=== PATIENT | female | born 1990 | race Caucasian/White ===

== ENCOUNTER 2021-01-31 07:18 | Outpatient (CLI) | payer BC ==
[2021-01-31 11:29] LABS: BASOPHILS # (AUTO) 0.1 10^3/uL (0.0-0.1); BASOPHILS % (AUTO) 0.8 %; EOSINOPHILS # (AUTO) 0.3 10^3/uL (0.0-0.7); EOSINOPHILS % (AUTO) 4.8 %; HCT - HEMATOCRIT 39.5 % (37.0-47.0); HGB - HEMOGLOBIN 13.2 g/dL (12.0-16.0); LYMPHOCYTES # (AUTO) 2.4 10^3/uL (1.5-3.5); LYMPHOCYTES % (AUTO) 38.7 %; MEAN CORPUSCULAR HEMOGLOBIN 30.1 pg (27.0-31.0); MEAN CORPUSCULAR HGB CONC 33.4 g/dL (32.0-36.0); MEAN CORPUSCULAR VOLUME 90.2 fL (81.0-99.0); MEAN PLATELET VOLUME 12.1 fL (7.9-10.8); MONOCYTES # (AUTO) 0.4 10^3/uL (0.0-1.0); MONOCYTES % (AUTO) 6.5 %; PLT - PLATELET COUNT 223 10^3/uL (130-450); RED BLOOD COUNT 4.38 10^6/uL (4.20-5.40); RED CELL DISTRIBUTION WIDTH 12.7 % (12.0-15.0); WHITE BLOOD COUNT 6.2 x10^3/uL (4.8-10.8)
[2021-01-31 11:37] LABS: ALBUMIN 4.4 g/dL (3.2-5.5); ALBUMIN/GLOBULIN RATIO 1.3 (1.0-2.2); ALKALINE PHOSPHATASE 46 IU/L (42-121); ALT ALANINE AMINOTRANSFERASE 18 IU/L (10-60); AST ASPARTATE AMINOTRANSFERASE 19 IU/L (10-42); BILIRUBIN,TOTAL 0.8 mg/dL (0.2-1.0); BUN - BLOOD UREA NITROGEN 15 mg/dL (6-20); CALCIUM 9.4 mg/dL (8.5-10.3); CARBON DIOXIDE - CO2 25 mmol/L (21-32); CHLORIDE 107 mmol/L (101-111); CHOLESTEROL 177 mg/dL; CREATININE 0.7 mg/dL (0.4-1.0); GFR - MDRD 99 (>89); GLUCOSE 87 mg/dL (70-100); HDL CHOLESTEROL 59 mg/dL; LDL CHOLESTEROL,CALCULATED 104 mg/dL; LDL/HDL RATIO 1.8 (<4.4); POTASSIUM 3.9 mmol/L (3.5-5.0); SODIUM 139 mmol/L (135-145); TOTAL PROTEIN 7.8 g/dL (6.7-8.2); TRIGLYCERIDES 71 mg/dL; VLDL CHOLESTEROL 14 mg/dL
[2021-01-31 11:49] LABS: THYROID STIMULATING HORMONE 0.89 uIU/mL (0.34-5.60)
== END 2021-01-31 07:19 | disposition home or self-care (01) ==
LOC: LAB.N 07:18
PROVIDERS: ATTEND Physician Assistant
DX: F33.9 Major depressive disorder, recurrent, unspecified (principal); F41.1 Generalized anxiety disorder; Z79.899 Other long term (current) drug therapy; Z83.3 Family history of diabetes mellitus
CPT/HCPCS: 36415; 80053; 80061; 83721; 84443; 85025

== ENCOUNTER 2022-01-17 08:00 | Outpatient (CLI) | payer BC ==
[2022-01-17 16:30] LABS: BILIRUBIN,URINE NEGATIVE (NEGATIVE); GLUCOSE, URINE (UA) NEGATIVE (NEGATIVE); KETONES,URINE (UA) NEGATIVE (NEGATIVE); LEUKOCYTE ESTERASE, URINE NEGATIVE (NEGATIVE); NITRITE,URINE NEGATIVE (NEGATIVE); OCCULT BLOOD,URINE NEGATIVE (NEGATIVE); PH,URINE 7.5 PH (5.0-7.5); PROTEIN,URINE NEGATIVE (NEGATIVE); UROBILINOGEN,URINE 1 (NORMAL) E.U./dL (NORMAL)
[2022-01-17 16:32] LABS: CLARITY,URINE CLEAR (CLEAR)
[2022-01-17 16:47] LABS: BACTERIA,URINE Few /HPF (None Seen); RBC,URINE 0-5 /HPF (0-5); SQUAMOUS EPITHELIAL CELL,UR MOD Squamous (<= Few); WBC,URINE 0-3 /HPF (0-5)
== END 2022-01-17 23:59 | disposition home or self-care (01) ==
LOC: LAB.WC 08:00
PROVIDERS: ATTEND Obstetrics & Gynecology
DX: Z32.01 Encounter for pregnancy test, result positive (principal)
CPT/HCPCS: 81001; 87086

== ENCOUNTER 2022-01-20 10:13 | Outpatient (CLI) | payer BC ==
[2022-01-20 10:34] LABS: BASOPHILS # (AUTO) 0.1 10^3/uL (0.0-0.1); BASOPHILS % (AUTO) 0.7 %; EOSINOPHILS # (AUTO) 0.2 10^3/uL (0.0-0.7); EOSINOPHILS % (AUTO) 3.2 %; HCT - HEMATOCRIT 36.5 % (37.0-47.0); HGB - HEMOGLOBIN 12.2 g/dL (12.0-16.0); MEAN CORPUSCULAR HEMOGLOBIN 29.8 pg (27.0-31.0); MEAN CORPUSCULAR HGB CONC 33.4 g/dL (32.0-36.0); MEAN PLATELET VOLUME 11.2 fL (7.9-10.8); MONOCYTES # (AUTO) 0.5 10^3/uL (0.0-1.0); MONOCYTES % (AUTO) 6.2 %; NEUTROPHILS # (AUTO) 4.6 10^3/uL (1.5-6.6); NEUTROPHILS % (AUTO) 62.6 %; PLT - PLATELET COUNT 225 10^3/uL (130-450); RED CELL DISTRIBUTION WIDTH 12.4 % (12.0-15.0); WHITE BLOOD COUNT 7.4 x10^3/uL (4.8-10.8)
[2022-01-21 04:08] LABS: HBsAG SCREEN Negative (Negative); HCV AB 0.1 s/co ratio (0.0-0.9)
[2022-01-21 06:09] LABS: HIV SCREEN 4TH GENERATION Non Reactive (Non Reactive)
[2022-01-21 07:11] LABS: RPR Non Reactive (Non Reactive); VARICELLA-ZOSTER AB IGG 1381 index (Immune >165)
== END 2022-01-20 10:14 | disposition home or self-care (01) ==
LOC: LAB 10:13
PROVIDERS: ATTEND Obstetrics & Gynecology
DX: Z36.89 Encounter for other specified antenatal screening (principal)
CPT/HCPCS: 36415; 85025; 86592; 86762; 86787; 86803; 86850; 86900; 86901; 87340; 87389

== ENCOUNTER 2022-01-28 17:03 | Outpatient (CLI) | payer BC ==
--- NOTE | 2022-01-29 13:00 | Ultrasound Report ---
PROCEDURE: OB First Trimester w/TV INDICATIONS: POSITIVE TEST OUTSIDE/PRIOR DATING DATA: Last menstrual period (LMP): 11/29/2021. LMP-based estimated date of delivery (NEWTON): 09/05/2022. First dating scan (date and location): 01/28/2022. Estimated date of delivery (NEWTON) from first dating scan: 09/08/2022. TECHNIQUE: Real-time scanning was performed of the fetus and maternal pelvic organs, with image documentation. Endovaginal scanning was also performed to better visualize the fetus and maternal ovaries. COMPARISON: None FINDINGS: Embryo: Foreman-rump length measures 1.7 cm, corresponding to 8 weeks 1 day. All recommendations are p resent measuring 11 x 11 mm. Heart rate: 176 beats per minute. Measurement variability in dating: +/- 4 weeks by LMP, +/- 7 days by mean sac diameter (use before 6 weeks gestation if crown-rump length not able to be measured), +/- 5 days by crown-rump length (6-12 weeks gestation). Maternal organs: Ovaries demonstrate a right corpus luteal cyst. IMPRESSION: Single live intrauterine present with ultrasound gestational age of 8 weeks 1 day. Recommend follow-up imaging at 20-20 weeks 4 days. Reviewed by: Arianne Metz MD on 01/29/2022 12:59 PM PDT Approved by: Arianne Metz MD on 01/29/2022 12:59 PM PDT Station ID: [id number]
== END 2022-01-28 17:04 | disposition home or self-care (01) ==
LOC: DI 17:03
PROVIDERS: ATTEND Obstetrics & Gynecology
DX: Z32.01 Encounter for pregnancy test, result positive (principal)

== ENCOUNTER 2022-02-07 12:12 | Outpatient (CLI) | payer BC ==
[2022-02-07 13:06] LABS: BILIRUBIN,URINE NEGATIVE (NEGATIVE); GLUCOSE, URINE (UA) NEGATIVE (NEGATIVE); KETONES,URINE (UA) TRACE mg/dL (NEGATIVE); LEUKOCYTE ESTERASE, URINE SMALL (NEGATIVE); NITRITE,URINE NEGATIVE (NEGATIVE); OCCULT BLOOD,URINE NEGATIVE (NEGATIVE); PH,URINE 5.5 PH (5.0-7.5); PROTEIN,URINE NEGATIVE (NEGATIVE); UROBILINOGEN,URINE 0.2 (NORMAL) E.U./dL (NORMAL)
[2022-02-07 13:10] LABS: CLARITY,URINE CLOUDY (CLEAR)
[2022-02-07 13:50] LABS: RBC,URINE 0-5 /HPF (0-5); SQUAMOUS EPITHELIAL CELL,UR MOD Squamous (<= Few)
[2022-02-07 13:51] LABS: AMORPHOUS SEDIMENT,UR Marked /LPF; BACTERIA,URINE None Seen /HPF (None Seen); CRYSTALS,URINE 3-5 Calcium Oxalate /LPF
== END 2022-02-07 12:13 | disposition home or self-care (01) ==
LOC: LAB.WC 12:12
PROVIDERS: ATTEND Obstetrics & Gynecology
DX: Z36.89 Encounter for other specified antenatal screening (principal)
CPT/HCPCS: 81001; 87086

== ENCOUNTER 2022-03-04 08:00 | Outpatient (CLI) | payer BC ==
[2022-03-04 09:52] LABS: BILIRUBIN,URINE NEGATIVE (NEGATIVE); GLUCOSE, URINE (UA) NEGATIVE (NEGATIVE); KETONES,URINE (UA) NEGATIVE (NEGATIVE); LEUKOCYTE ESTERASE, URINE NEGATIVE (NEGATIVE); NITRITE,URINE NEGATIVE (NEGATIVE); OCCULT BLOOD,URINE NEGATIVE (NEGATIVE); PROTEIN,URINE NEGATIVE (NEGATIVE); UROBILINOGEN,URINE 0.2 (NORMAL) E.U./dL (NORMAL)
[2022-03-04 09:54] LABS: CLARITY,URINE CLOUDY (CLEAR)
[2022-03-04 10:06] LABS: AMORPHOUS SEDIMENT,UR Marked /LPF; BACTERIA,URINE Few /HPF (None Seen); CRYSTALS,URINE 3-5 Calcium Oxalate /LPF; RBC,URINE 0-5 /HPF (0-5); SQUAMOUS EPITHELIAL CELL,UR FEW Squamous (<= Few); WBC,URINE 0-3 /HPF (0-5)
== END 2022-03-04 23:59 | disposition home or self-care (01) ==
LOC: LAB.WC 08:00
PROVIDERS: ATTEND Obstetrics & Gynecology
DX: Z34.00 Encounter for supervision of normal first pregnancy, unspecified trimester (principal); Z36.89 Encounter for other specified antenatal screening
CPT/HCPCS: 81001; 87086

== ENCOUNTER 2022-04-18 18:43 | Outpatient (CLI) | payer BC ==
--- NOTE | 2022-04-19 03:04 | Ultrasound Report ---
PROCEDURE: OB Detailed Eval INDICATIONS: SUPERVISION OF OUTSIDE/PRIOR DATING DATA: Last menstrual period (LMP): 11/29/2021. LMP-based estimated date of delivery (NEWTON): 09/05/2022. First dating scan (date and location): . 01/28/2022 Estimated date of delivery (NEWTON) from first dating scan: 08/12/2022. The below data below was generated using the ultrasound NEWTON TECHNIQUE: Real-time scanning was performed of the fetus, with image documentation and biometric measurements. COMPARISON: 01/27/2022. FINDINGS: General: A single living intrauterine gestation is present. Presentation: Variable Placenta: Placental position is posterior, without previa. Amniotic fluid index: 16.6 cm, at the 73rd percentile for gestational age. Deepest pocket: 5.1 cm. heart rate: 157 beats per minute. Maternal cervical canal: 4.8 cm long; normal length is 2.5 cm or more. There is suspected funneli ng in the cervix. biometrics: Biparietal diameter: 4.6 cm, 19 weeks 5 days Head circumference: 17.1 cm, 19 weeks 5 days Abdominal circumference: 13.9 cm, 20 weeks 1 day Femur length: 3.3 cm, 20 weeks 3 days Estimated gestational age from initial scan: 19 weeks 4 days Composite gestational age from present scan: 20 weeks 0 days Estimated weight and percentile: 339 g, 81st percentile. Measurement variability in biometric dating: +/- 10 days from 12-20 weeks gestation, +/- 2 weeks from 20-30 weeks gestation, +/- 3 weeks at 30 weeks gestation or later. Anatomic survey: Neuro: Ventricles are normal at less than 10 mm. Cisterna magna is normal at 3-11 mm. Cerebellum i s normal in size and morphology. Nuchal skin fold: Normal at less than 6 mm between 14 and 20 weeks gestational age. Left ventricula r outflow tract not well seen. Face: Nose and lips, facial profile are normal. Spine: No evidence for spina bifida. Heart: 4-chambered heart is present, with normal right ventricular outflow tracts. Ventricular outfl ow tract not well seen. Diaphragm: Diaphragm is intact. Stomach: Left-sided stomach is present. Kidneys: No hydronephrosis. Normal is less than 5 mm in 2nd trimester, less than 7 mm in 3rd trimester. Cord: 3 vessel cord has a marginal cord insertion on the placenta. Bladder: Normal in size. Extremities: All 4 extremities are visualized. IMPRESSION: 1. Single living intrauterine demonstrating interval growth with estimated weight at the 73rd percentile. 2. Left ventricular outflow tract not well seen. A marginal cord insertion was also noted. A repeat s tudy may be performed in 2-4 weeks to demonstrate stability or resolution. 3. Suspected funneling in the cervix. Recommend continued clinical follow-up and a short-term repeat study if indicated. Reviewed by: Gwyn Morris MD on 04/19/2022 3:02 AM PDT Approved by: Gwyn Morris MD on 04/19/2022 3:02 AM PDT Station ID: [id number]
== END 2022-04-18 18:44 | disposition home or self-care (01) ==
LOC: DI 18:43
PROVIDERS: ATTEND Obstetrics & Gynecology
DX: Z34.00 Encounter for supervision of normal first pregnancy, unspecified trimester (principal); Z36.89 Encounter for other specified antenatal screening

== ENCOUNTER 2022-04-30 18:39 | Outpatient (CLI) | payer BC ==
--- NOTE | 2022-05-01 09:15 | Ultrasound Report ---
PROCEDURE: OB F/U or Repeat INDICATIONS: PLACENTA ABNORMALITY OUTSIDE/PRIOR DATING DATA: Last menstrual period (LMP): 11/29/2021. LMP-based estimated date of delivery (NEWTON): 09/05/2022. First dating scan (date and location): 01/28/2022. Estimated date of delivery (NEWTON) from first dating scan: 09/08/2022. The below data below was generated using the first trimester ultrasound NEWTON of 09/08/2022 TECHNIQUE: Real-time scanning was performed of the fetus, with image documentation. Endovaginal scanning: Not performed COMPARISON: 04/18/2022 FINDINGS: General: A single living intrauterine gestation is present. Presentation: Variable Placenta: Placental position is posterior, without previa. Placental cord insertion measures betwee n 1.2 and 1.9 cm from the edge of the placenta. Amniotic fluid index: 15.0 cm, largest pocket is 3.9 cm, normal for gestational age. heart rate: 153 beats per minute. Maternal cervical canal: Closed and 4.5 cm long; normal length is 2.5 cm or more. There is no cervic al funneling as was suggested on the previous study. Other: left ventricular outflow tract is well seen and appears normal. IMPRESSION: 1. Living intrauterine . 2. Persistent marginal cord insertion seen, similar to the prior study. Follow-up in early third trim sven is recommended. 3. The cervix is well seen, closed, and long. 4. Left ventricular cardiac outflow tract is normal. Reviewed by: Danette Arora MD on 05/01/2022 9:14 AM PDT Approved by: Danette Arora MD on 05/01/2022 9:14 AM PDT Station ID: [id number]
== END 2022-04-30 18:40 | disposition home or self-care (01) ==
LOC: DI 18:39
PROVIDERS: ATTEND Obstetrics & Gynecology
DX: O43.92 Unspecified placental disorder, second trimester (principal); Z3A.00 Weeks of gestation of pregnancy not specified

== ENCOUNTER 2022-06-16 14:03 | Outpatient (CLI) | payer BC ==
[2022-06-16 15:18] LABS: HCT - HEMATOCRIT 32.6 % (37.0-47.0); HGB - HEMOGLOBIN 10.8 g/dL (12.0-16.0); MEAN CORPUSCULAR HEMOGLOBIN 29.1 pg (27.0-31.0); MEAN CORPUSCULAR HGB CONC 33.1 g/dL (32.0-36.0); MEAN CORPUSCULAR VOLUME 87.9 fL (81.0-99.0); MEAN PLATELET VOLUME 11.7 fL (7.9-10.8); RED BLOOD COUNT 3.71 10^6/uL (4.20-5.40); RED CELL DISTRIBUTION WIDTH 12.9 % (12.0-15.0); WHITE BLOOD COUNT 10.2 x10^3/uL (4.8-10.8)
== END 2022-06-16 14:04 | disposition home or self-care (01) ==
LOC: LAB 14:03
PROVIDERS: ATTEND Obstetrics & Gynecology
DX: Z34.00 Encounter for supervision of normal first pregnancy, unspecified trimester (principal); Z36.89 Encounter for other specified antenatal screening
CPT/HCPCS: 36415; 82950; 85027

== ENCOUNTER 2022-07-21 16:59 | Outpatient (CLI) | payer BC ==
--- NOTE | 2022-07-22 20:55 | Ultrasound Report ---
PROCEDURE: OB F/U or Repeat INDICATIONS: PLACENTAL ABNORMALITY OUTSIDE/PRIOR DATING DATA: Last menstrual period (LMP): 11/29/2021. LMP-based estimated date of delivery (NEWTON): 09/05/2022. First dating scan (date and location): 01/28/2022. Estimated date of delivery (NEWTON) from first dating scan: 09/08/2022. The below data below was generated using the working NEWTON of 09/08/2022 TECHNIQUE: Real-time scanning was performed of the fetus, with image documentation and biometric measurements. Endovaginal scannin indicated COMPARISON: 04/30/2022, 04/28/2022, 01/28/2022. FINDINGS: General: A single living intrauterine gestation is present. Presentation: Vertex Placenta: Placental position is posterior, without previa. Placenta tip is now approximately 2.7 to 3.5 cm from internal os. Amniotic fluid index: 10.1 cm, normal for gestational age. heart rate: 136 beats per minute. Maternal cervical canal: 5.6 cm long; normal length is 2.5 cm or more. biometrics: Biparietal diameter: 8.2 cm, 33 weeks, 0 day. Head circumference: 30.7 cm, 34 weeks, 2 days. Abdominal circumference: 28.7 cm, 32 weeks, 5 days. Femur length: 6.49 cm, 33 weeks, 3 days. Estimated gestational age from initial scan: 33 weeks, 0 day. Composite gestational age from present scan: 33 weeks, 3 days. Estimated weight and percentile: 2129.2 g, 45.2%. Measurement variability in biometric dating: +/- 10 days from 12-20 weeks gestation, +/- 2 weeks from 20-30 weeks gestation, +/- 3 weeks at 30 weeks gestation or more. Other: Not applicable. IMPRESSION: 1. Single live intrauterine gestation with fetus in vertex presentation. heart rate is 136 bpm. Normal amount of amniotic fluid. Normal growth. Estimated weight is at 45.2%. 2. Placenta location is posterior. No evidence of placenta previa. Reviewed by: Shabbir Tinoco MD on 07/22/2022 8:54 PM PST Approved by: Shabbir Tinoco MD on 07/22/2022 8:54 PM PST Station ID: [id number]
== END 2022-07-21 17:00 | disposition home or self-care (01) ==
LOC: DI 16:59
PROVIDERS: ATTEND Obstetrics & Gynecology
DX: O43.893 Other placental disorders, third trimester (principal); O99.213 Obesity complicating pregnancy, third trimester; Z3A.33 33 weeks gestation of pregnancy

== ENCOUNTER 2022-07-23 13:40 | Outpatient (CLI) | payer BC ==
[2022-07-23 14:05] LABS: RUPTURE OF MEMBRANES PLUS NEGATIVE (NEGATIVE)
== END 2022-07-23 13:41 | disposition home or self-care (01) ==
LOC: LAB.WC 13:40
PROVIDERS: ATTEND Obstetrics & Gynecology
DX: O99.891 Other specified diseases and conditions complicating pregnancy (principal); N89.8 Other specified noninflammatory disorders of vagina
CPT/HCPCS: 84112

== ENCOUNTER 2022-08-14 08:00 | Outpatient (CLI) | payer BC | END 2022-08-14 23:59 | disposition home or self-care (01) | LOC: LAB.WC 08:00 | PROVIDERS: ATTEND Obstetrics & Gynecology | DX: Z36.85 Encounter for antenatal screening for Streptococcus B (principal) | CPT/HCPCS: 87797 ==

== ENCOUNTER 2022-08-18 17:18 | Outpatient (CLI) | payer BC ==
--- NOTE | 2022-08-18 18:09 | PROVIDER PROGRESS NOTE ---
- HPI Chief Complaint: Hypertension/PIH (Patient had elevated BPs at home) Current : Vital Signs Temperature 98.2 F 08/18/22 17:29 Heart Rate 78 08/18/22 17:29 Respiratory Rate 14 08/18/22 17:29 O2 Saturation 100 08/18/22 17:29 Temperature 98.2 F 08/18/22 17:40 Heart Rate 78 08/18/22 17:29 Respiratory Rate 14 08/18/22 17:29 Blood Pressure 127/88 H 08/18/22 17:52 O2 Saturation 100 08/18/22 17:29 If not protocol: Oxygen Flow, liters/minute - Exam Gen: NAD Pulm: CTA bilaterally Cardiac: RRR Abdomen: gravid, nontender Ext: no peripheral edema Neuro: 1+DTRs, no clonus - Procedures OB Procedure Performed: NST (ReactiveNST) Diagnosis/Indication for NST: Gestational Hypertension (Patient had elevated BPs at home. First BP here 136/90, subsequent BP 119/81. Pt denies headahce, changes in vision, RUQ pain. Positive movement. Denies contractions, vaginal bleeding, and leakage of fluid.) NST Procedure: 150, moderate variability, +accels, no decels Reactive NST 37+3 weeks - Plan Plan: Discussed with patient normal repeat blood pressures. Reviewed signs and symptoms of pre-eclampsia. Patient counseled to return for headache, changes in vision, right upper quadrant pain. Patient advised to return of decreased movement, vaginal bleeding, leakage of fluid, contractions or any other concerns. She has follow up with Dr. Moseley on Thursday. Advised her to return to labor and delivery if elevated BPs prior to appointment.
[2022-08-18 18:18] LABS: CREATININE,URINE 46.3 mg/dL; PROTEIN/CREATININE RATIO,URINE 0.2 (<=0.2)
[2022-08-18 18:20] LABS: BASOPHILS % (AUTO) 0.3 %; EOSINOPHILS # (AUTO) 0.1 10^3/uL (0.0-0.7); EOSINOPHILS % (AUTO) 0.8 %; HCT - HEMATOCRIT 36.4 % (37.0-47.0); LYMPHOCYTES # (AUTO) 1.7 10^3/uL (1.5-3.5); LYMPHOCYTES % (AUTO) 21.5 %; MEAN CORPUSCULAR HEMOGLOBIN 29.8 pg (27.0-31.0); MEAN CORPUSCULAR VOLUME 90.3 fL (81.0-99.0); MEAN PLATELET VOLUME 13.5 fL (7.9-10.8); MONOCYTES # (AUTO) 0.6 10^3/uL (0.0-1.0); MONOCYTES % (AUTO) 7.7 %; NEUTROPHILS # (AUTO) 5.5 10^3/uL (1.5-6.6); NEUTROPHILS % (AUTO) 69.2 %; PLT - PLATELET COUNT 159 10^3/uL (130-450); RED BLOOD COUNT 4.03 10^6/uL (4.20-5.40); RED CELL DISTRIBUTION WIDTH 14.9 % (12.0-15.0)
[2022-08-18 18:30] LABS: ALBUMIN 3.2 g/dL (3.2-5.5); ALBUMIN/GLOBULIN RATIO 0.9 (1.0-2.2); BILIRUBIN,TOTAL 0.7 mg/dL (0.2-1.0); CALCIUM 9.1 mg/dL (8.5-10.3); CREATININE 0.7 mg/dL (0.4-1.0); POTASSIUM 3.7 mmol/L (3.5-5.0); TOTAL PROTEIN 6.7 g/dL (6.7-8.2); URIC ACID 4.9 mg/dL (2.6-7.2)
[2022-08-18 18:53] VITALS: BP 118/75
== END 2022-08-18 18:45 | disposition home or self-care (01) ==
LOC: WFO 17:18 → FBP 17:27 → WFO 18:45
PROVIDERS: ATTEND Obstetrics & Gynecology Obstetrics
DX: O13.3 Gestational [pregnancy-induced] hypertension without significant proteinuria, third trimester (principal); Z3A.37 37 weeks gestation of pregnancy
CPT/HCPCS: 59025; 80053; 82570; 83615; 84156; 84550; 85025; 99215

== ENCOUNTER 2022-08-21 11:51 | Outpatient (CLI) | payer BC ==
[2022-08-21 12:09] VITALS: BP 135/85
--- NOTE | 2022-08-21 13:38 | PROCEDURE REPORT ---
- HPI Diagnosis/Indication for NST: Decreased movement Current EDU 09/05/22 Gestation 37 Weeks and 6 Days 1 Para 0 Vital Signs Temperature 98.6 F 08/21/22 12:02 Heart Rate 76 08/21/22 12:02 Respiratory Rate 18 08/21/22 12:02 Blood Pressure 135/85 H 08/21/22 12:02 Temperature 98.6 F 08/21/22 12:02 Heart Rate 76 08/21/22 12:02 Respiratory Rate 18 08/21/22 12:02 Blood Pressure 135/85 H 08/21/22 12:02 O2 Saturation If not protocol: Oxygen Flow, liters/minute - NST Procedure NST Procedure Start Date 08/21/22 Start Time 11:59 Stop Time 12:29 Vibroacoustic Stimulation Used No Patient States Movement No: decreased EFM: 140s, moderate variability, positive accelerations, no decelerations [place]: no contractions NST reactive/Cat 1 Performed and read on 08/21/21 - Results and Plan Findings/Impression: 32yo at 37.6w presenting with concern of decreased movement. She had not felt contractions like she has been this morning, and then she noticed she had not felt baby move as much either and was concerned. Denies leaking fluid or vaginal bleeding. She has since felt movement in triage. care at [facility]. VSS Gen: NAD CV: Regular rate Resp: Breathing unlabored Abd: nt Ext: +1 edema NST reactive/Cat 1 32yo at 37.6w with reactive NST, evaluated for decreased movement - Patient reassured, NST reactive - Labor precautions reviewed, follow up at as scheduled
== END 2022-08-21 12:40 | disposition home or self-care (01) ==
LOC: WFO 11:51 → FBP 11:53 → WFO 12:40
PROVIDERS: ATTEND Obstetrics & Gynecology
DX: O36.8130 Decreased fetal movements, third trimester, not applicable or unspecified (principal); Z3A.37 37 weeks gestation of pregnancy
CPT/HCPCS: 59025

== ENCOUNTER 2022-09-04 11:19 | Outpatient (CLI) | payer BC ==
[2022-09-04 11:31] LABS: HCT - HEMATOCRIT 34.8 % (37.0-47.0); HGB - HEMOGLOBIN 11.3 g/dL (12.0-16.0); MEAN CORPUSCULAR HEMOGLOBIN 29.3 pg (27.0-31.0); MEAN CORPUSCULAR HGB CONC 32.5 g/dL (32.0-36.0); MEAN CORPUSCULAR VOLUME 90.2 fL (81.0-99.0); RED BLOOD COUNT 3.86 10^6/uL (4.20-5.40); RED CELL DISTRIBUTION WIDTH 14.5 % (12.0-15.0); WHITE BLOOD COUNT 8.6 x10^3/uL (4.8-10.8)
[2022-09-04 11:44] LABS: ALBUMIN 3.4 g/dL (3.2-5.5); BILIRUBIN,TOTAL 0.7 mg/dL (0.2-1.0); CALCIUM 8.8 mg/dL (8.5-10.3); CREATININE 0.8 mg/dL (0.4-1.0); POTASSIUM 4.1 mmol/L (3.5-5.0); TOTAL PROTEIN 6.9 g/dL (6.7-8.2)
[2022-09-04 12:20] LABS: CREATININE,URINE 93.6 mg/dL
== END 2022-09-04 11:20 | disposition home or self-care (01) ==
LOC: LAB 11:19
PROVIDERS: ATTEND Obstetrics & Gynecology
DX: O13.4 Gestational [pregnancy-induced] hypertension without significant proteinuria, complicating childbirth (principal)
CPT/HCPCS: 36415; 80053; 82570; 84156; 85027

== ENCOUNTER 2022-09-05 16:12 | Observation (INO) | payer BC ==
[2022-09-05] MEDS: ACETAMINOPHEN 500 MG TABLET PO PRN (17:29)
--- NOTE | 2022-09-05 18:35 | PROVIDER PROGRESS NOTE ---
Subjective - Prog Note Date Prog Note Date: 09/05/22 Prog Note Time: 17:00 - Subjective Pt reports feeling: Improved Objective - Vital Signs/Intake & Output Vital Signs: Vital Signs x48h Temp Pulse Resp BP BP Pulse Ox 09/05/22 17:55 137/91 H 09/05/22 17:45 126/83 H 09/05/22 17:37 134/99 H 09/05/22 17:28 121/76 09/05/22 17:00 132/88 H 09/05/22 16:45 126/88 H 09/05/22 16:37 98.4 F 93 16 119/76 129/87 H 100 Assessment/Plan - Problem List (2) induced hypertension, Impression: She had an elctive induction for PIH and NVD. She developed hypertension yesterday and headache. She was given antihypertensive medication yesterday and had come today because of persistent headache. Her lab works yesterday was not significant After admission, her BP was normal and her headache was much improved too. She will be discharged with an instruction and she will continue her medication.
[2022-09-05] MEDS ORDERED: NIFEdipine ER 30 MG TABLET PO ONE (20:20)
[2022-09-05] MEDS: hydrOXYzine PAMOATE 25 MG CAPSULE PO PRN (20:42)
--- NOTE | 2022-09-05 22:28 | PROVIDER PROGRESS NOTE ---
Progress Note After she was discharged earlier, she wanted to stay overnight because she was too anxious to go home. Her main concern was headache that can be part of symptoms of preeclampsia and she is afraid of having any medical complications. We decided to keep her overnight for observation and she was given medication that she was supposed to start from yesterday. She was given Procardia 30 mg and Vistaril 25 mg. She was on the psychiatric treatment in the past and she is scheduled to start medication in the near future. I came back and examine her 2 hours after her medication and she is feeling much better and she is resting well. We are going to keep her overnight and will check her in the morning again.
[2022-09-06] MEDS: ACETAMINOPHEN 500 MG TABLET PO PRN (02:21)
[2022-09-06] MEDS: hydrOXYzine PAMOATE 25 MG CAPSULE PO PRN ×2 (02:21→08:28)
--- NOTE | 2022-09-06 06:45 | PROVIDER PROGRESS NOTE ---
Progress Note She rested well during the night and her blood pressure was a stable also. The highest blood pressure was 144/88 but that was last evening but during the night it stayed at 128/70-78 ranges. She denies any more headaches and she is feeling much better. She is going to be discharged today and she is going to continue to take her Procardia for blood pressure and Vistaril as needed. She is going to keep her appointment on Thursday. A prescription for Vistaril is going to be provided
--- NOTE | 2022-09-06 06:53 | Discharge Plan ---
Discharge Plan Problem Reviewed?: Yes Disposition: Home, Self Care Prescriptions: Acetaminophen [Tylenol] 1,000 mg PO Q8HR PRN #10 tab PRN Reason: Pain Or Fever > 38c (100.4f) hydrOXYzine PAMOATE [Vistaril] 25 mg PO Q6H PRN #10 cap PRN Reason: Anxiety Diet: Regular Activity Restrictions: No Restrictions Shower Restrictions: No No Smoking: If you smoke, Please STOP! Call for help. Follow-up with: Nidhi Grady PA [Primary Care Provider] -
--- NOTE | 2022-09-06 06:55 | DISCHARGE SUMMARY ---
Discharge Summary Admit Date: 09/05/22 Discharge Date: 09/06/22 Discharging Provider: Primary Care Provider: Code Status: Attempt Resuscitation Discharge Disposition: 01 Home, Self Care - DIAGNOSES Admission Diagnoses: headache and hypertension Discharge Diagnoses with Status of Each Condition: Resolved headache and hypertension with the medication Condition on discharge: stable - HPI History of Present Illness: She was induced for -induced hypertension and delivery was uneventful. She started having headache and hypertension therefore she was given medication for the hypertension before she came to the hospital. She continued to have a headache therefore she came to the hospital and her blood pressure was elevated. Her lab works were uneventful and there was no evidence of preeclampsia . She responded to medication for the headache and blood pressure but she did not feel comfortable therefore she requested to be observed for overnight - HOSPITAL COURSE Hospital Course: Her vital signs were stable and she responded to the medication for headache and she feels comfortable going home this morning - ALLERGIES Allergies/Adverse Reactions: Allergies Allergy/AdvReac Type Severity Reaction Status Date / Time cefaclor [From Ceclor] Allergy Unknown Verified 08/27/22 15:33 Sulfa (Sulfonamide Allergy Unknown Verified 08/27/22 15:33 Antibiotics) sulfamethoxazole Allergy Unknown Verified 08/27/22 15:33 [From Septra] trimethoprim [From Septra] Allergy Unknown Verified 08/27/22 15:33 - MEDICATIONS Home Medications: Ambulatory Orders Medication Instructions Recorded Confirmed Acetaminophen [Tylenol] 1,000 mg PO Q8HR PRN #10 tab 09/06/22 hydrOXYzine PAMOATE [Vistaril] 25 mg PO Q6H PRN #10 cap 09/06/22 - FOLLOW UP Follow Up: She will be seen by Dr. Moseley on Thursday She was given prescription of Vistaril and Tylenol. And she was a given Procardia before she came to the hospital and she is going to continue to take it. She was instructed to contact us if she develops any more clinical symptoms of a headache and the hypertension.
[2022-09-06 08:53] VITALS: BP 125/87
== END 2022-09-06 09:05 | disposition home or self-care (01) ==
LOC: WFO 16:12 → FBP 16:13 → WFO 21:20
PROVIDERS: ADMIT Obstetrics & Gynecology; ATTEND Obstetrics & Gynecology
DX: O13.5 Gestational [pregnancy-induced] hypertension without significant proteinuria, complicating the puerperium (principal); R51.9 Headache, unspecified
CPT/HCPCS: 99215; A9270; G0378

== ENCOUNTER 2023-03-27 13:14 | Emergency (ER) | payer BC ==
[2023-03-27 13:24] VITALS: O2SAT 100
[2023-03-27] MEDS ORDERED: MECLIZINE 12.5 MG TABLET PO STA (13:43)
[2023-03-27] MEDS ORDERED: SODIUM CHLORIDE 0.9% 1,000 ML IV STA (13:43)
[2023-03-27] MEDS ORDERED: KETOROLAC 30 MG/ML VIAL IVP STA (13:44)
--- NOTE | 2023-03-27 13:47 | ED Physician Documentation ---
History of Present Illness - Stated complaint Stated Complaint: HIGH BP,RAHMAN,DIZZINESS - Chief complaint Chief Complaint: Neuro - Additonal information Additional information: This is a very pleasant 33-year-old female that presents the emergency department for evaluation of vertigo, headache and concerns of elevated blood pressure. Patient reports that since Thursday she has had the sensation of being on a vgbvq-ry-evjlt. This most often occurs when turning her head, especially to the left or changing positions. She denies vomiting. No recent head trauma. She is also been having a right-sided headache that sometimes is in the temporal region but also extends to the nape of her neck. She has taken naproxen intermittently with good resolution of the headache. No recent fevers. She denies chest pain, shortness of air, abdominal pain and urinary symptoms. Denies possibility of currently on her menstrual cycle. She did have preeclampsia while and was weaned from the nifedipine about 3 to 4 months ago. Review of Systems Constitutional: denies: Fever Ears: reports: Reviewed and negative Nose: reports: Reviewed and negative Cardiac: reports: Reviewed and negative Respiratory: reports: Reviewed and negative GI: reports: Reviewed and negative : reports: Reviewed and negative Skin: reports: Reviewed and negative Musculoskeletal: denies: Neck pain Neurologic: reports: Head injury, Other (Vertigo). denies: Headache PD PAST MEDICAL HISTORY - Past Medical History Cardiovascular: Hypertension Respiratory: None - Present Medications Home Medications: Ambulatory Orders Medication Instructions Recorded Confirmed Citalopram [CeleXA] 30 mg PO DAILY 03/27/23 03/27/23 Meclizine [Antivert] 25 mg PO Q8H #20 tablet 03/27/23 busPIRone [Buspar] 5 mg PO PRN PRN 03/27/23 03/27/23 - Allergies Allergies/Adverse Reactions: Allergies Allergy/AdvReac Type Severity Reaction Status Date / Time cefaclor [From [facility]] Allergy Unknown Verified 08/27/22 15:33 Sulfa (Sulfonamide Allergy Unknown Verified 08/27/22 15:33 Antibiotics) sulfamethoxazole Allergy Unknown Verified 08/27/22 15:33 [From ] trimethoprim [From ] Allergy Unknown Verified 08/27/22 15:33 - Social History Smoking Status: Never smoker PD ED PE NORMAL - General General: Alert and oriented X 3, No acute distress, Well developed/nourished - HEENT HEENT: Atraumatic, Ears normal, Moist mucous membranes, Pharynx benign - Neck Neck: Supple, no meningeal sign, No adenopathy - Cardiac Cardiac: RRR, No murmur - Respiratory Respiratory: No respiratory distress, Clear bilaterally - Abdomen Abdomen: Normal bowel sounds, Soft, Non tender - Neuro Neuro: Alert and oriented X 3, physical geographer 2-12 intact, No motor deficit, No sensory deficit, Normal speech, Other (Patient had no nystagmus but reported dizziness when turning her head to the left. Symptoms persisted about 25 seconds before abating. No similar symptoms were elicited with positioning to the right.) Eye Opening: Spontaneous Motor: Obeys Commands Verbal: Oriented GCS Score: 15 Results - Vitals Vitals: Vital Signs - 24 hr 03/27/23 03/27/23 13:18 13:58 Temperature 36.4 C L Heart Rate 75 63 Respiratory 20 18 Rate Blood Pressure 148/97 H 124/86 H O2 Saturation 100 100 Oxygen O2 Source Room air - Labs Labs: Laboratory Tests 03/27/23 13:52 WBC 7.1 RBC 4.27 Hgb 13.1 Hct 38.8 MCV 90.9 MCH 30.7 MCHC 33.8 RDW 12.2 Plt Count 233 MPV 11.4 H Neut # (Auto) 3.7 Lymph # (Auto) 2.5 [place] # (Auto) 0.5 Eos # (Auto) 0.3 Baso # (Auto) 0.1 Absolute Nucleated RBC 0.00 Nucleated RBC % 0.0 PD Medical Decision Making - ED course Complexity details: reviewed results, re-evaluated patient, d/w patient ED course: 33-year-old female presents emergency department for evaluation of intermittent vertigo that feels like she is getting off a ueqkf-fz-bhlbs. Often symptomatic when turning her head to the left or changing positions. No nausea or vomiting. No tinnitus or obvious focal deficits. Also reporting a right-sided headache intermittently for the last several days. She has had good resolution with naproxen. On presentation the emergency department she is alert and very well-appearing. Unremarkable vital signs without abnormalities noted. On exam I was able to induce the vertigo with positioning to the left. None was elicited with positioning to the right. Patient was given a single dose of meclizine here in the ER and on reevaluation is feeling better. She also received a liter of IV fluids and a single dose of Toradol for the headache with again reported resolution of symptoms. CBC electrolytes and test are all per my interpretation without acute worrisome findings. Clinically history is suggestive of positional vertigo and patient has no symptoms or exam findings that would be consistent with a central etiology. Headache is rather benign in presentation and without any red flags, falls, trauma, fevers meningeal signs or focal deficits I do not feel that she would benefit from advanced imaging. Patient was advised to follow closely with her PCP. If the positioning techniques and occasional doses of meclizine are not effective in controlling the vertigo may benefit from referral to ENT or physical therapy. Otherwise usual emergent return precautions for failure symptoms to resolve was discussed. Departure - Departure Disposition: Home, Self Care Clinical Impression: Positional vertigo of left ear Headache Qualifiers: Headache type: unspecified Headache chronicity pattern: acute headache Intractability: not intractable Qualified Code(s): R51.9 - Headache, unspecified Condition: Stable Record reviewed to determine appropriate education?: Yes Instructions: Vertigo Paroxysmal Positional Prescriptions: Meclizine [Antivert] 25 mg PO Q8H #20 tablet Comments: Keira as discussed at the bedside your labs today were all essentially normal. The presentation of your dizziness is quite consistent with a peripheral etiology. This means that the dizziness is likely coming from the inner ear. There were no findings suggest infection on the exam. I do recommend that you practice the Maya maneuver at home starting with positioning of your head to the left. You can try to take meclizine 2-3 times a day for dizziness. If you find this is not improving your symptoms I would recommend following closely with your primary care doctor. Often referral to physical therapy can be he lpful with treatment of vertigo. Your headache appears to be benign in nature. You are having good resolution of symptoms with simple mfdk-eow-kxboofj medication such as Tylenol or naproxen and I would recommend that you continue this. Over the course of the weekend attempt get plenty of rest and stay well-hydrated. If you find that your symptoms are not improving, you develop fevers, have any fainting episodes, slurred speech, facial droop, double vision or any other worrisome symptoms and please return immediately to the ER for a second evaluation. Forms: PCP List
[2023-03-27 13:58] LABS: BASOPHILS # (AUTO) 0.1 10^3/uL (0.0-0.1); BASOPHILS % (AUTO) 0.7 %; EOSINOPHILS # (AUTO) 0.3 10^3/uL (0.0-0.7); EOSINOPHILS % (AUTO) 4.2 %; HCT - HEMATOCRIT 38.8 % (37.0-47.0); HGB - HEMOGLOBIN 13.1 g/dL (12.0-16.0); LYMPHOCYTES # (AUTO) 2.5 10^3/uL (1.5-3.5); LYMPHOCYTES % (AUTO) 35.8 %; MEAN CORPUSCULAR HEMOGLOBIN 30.7 pg (27.0-31.0); MEAN CORPUSCULAR HGB CONC 33.8 g/dL (32.0-36.0); MEAN CORPUSCULAR VOLUME 90.9 fL (81.0-99.0); MEAN PLATELET VOLUME 11.4 fL (7.9-10.8); MONOCYTES # (AUTO) 0.5 10^3/uL (0.0-1.0); MONOCYTES % (AUTO) 7.4 %; NEUTROPHILS # (AUTO) 3.7 10^3/uL (1.5-6.6); NEUTROPHILS % (AUTO) 51.8 %; PLT - PLATELET COUNT 233 10^3/uL (130-450); RED BLOOD COUNT 4.27 10^6/uL (4.20-5.40); RED CELL DISTRIBUTION WIDTH 12.2 % (12.0-15.0); WHITE BLOOD COUNT 7.1 x10^3/uL (4.8-10.8)
[2023-03-27 14:18] LABS: ALBUMIN 4.5 g/dL (3.2-5.5); ALBUMIN/GLOBULIN RATIO 1.6 (1.0-2.2); BILIRUBIN,TOTAL 0.3 mg/dL (0.2-1.0); CALCIUM 9.6 mg/dL (8.5-10.3); CREATININE 0.8 mg/dL (0.6-1.3); TOTAL PROTEIN 7.3 g/dL (6.4-8.9)
[2023-03-27 14:23] LABS: HCG,QUALITATIVE BLOOD NEGATIVE
[2023-03-27 14:53] VITALS: BP 114/74
== END 2023-03-27 14:52 | disposition home or self-care (01) ==
LOC: ED 13:14
DX: H81.12 Benign paroxysmal vertigo, left ear (principal); R51.9 Headache, unspecified; I10 Essential (primary) hypertension; Z79.899 Other long term (current) drug therapy
CPT/HCPCS: 36415; 80053; 83690; 84703; 85025; 96374; 99283; 99284; A9270